=== PATIENT | male | born 1975 | race Caucasian/White ===

== ENCOUNTER 2017-09-01 12:14 | Emergency (ER) | payer SELFPAY ==
[~2017-09-01] VITALS: Ht 182.9 cm; Wt 65.2 kg
[2017-09-01 12:16] VITALS: BP 123/84
[2017-09-01] MEDS ORDERED: LIDOCAINE 1%, 20ML SQ ONE (13:00)
[2017-09-01] MEDS ORDERED: LIDOCAINE 1%, 20ML ONE (13:03)
[2017-09-01 13:48] LABS: HEMATOCRIT 44.7 % (39.2-51.8); HEMOGLOBIN 15.2 g/dL (13.7-18.0); WHITE BLOOD COUNT 12.5 x10^3/uL (3.4-10)
[2017-09-01 14:04] LABS: BLOOD UREA NITROGEN 12 mg/dL (7-18)
== END 2017-09-01 14:47 | disposition home or self-care (01) ==
LOC: ED 14:30
DX: L03.113 Cellulitis of right upper limb (principal); L02.413 Cutaneous abscess of right upper limb
CPT/HCPCS: 10060; 36415; 80048; 82040; 85025

== ENCOUNTER 2017-09-03 10:53 | Emergency (ER) | payer SELFPAY ==
[~2017-09-03] VITALS: Ht 182.9 cm; Wt 64.0 kg
[2017-09-03 10:55] VITALS: BP 116/74
== END 2017-09-03 12:13 | disposition home or self-care (01) ==
LOC: ED 11:34
DX: Z48.01 Encounter for change or removal of surgical wound dressing (principal)
CPT/HCPCS: 99283

== ENCOUNTER 2017-09-05 10:14 | Emergency (ER) | payer SELFPAY ==
[~2017-09-05] VITALS: Ht 185.4 cm; Wt 65.4 kg
[2017-09-05 10:16] VITALS: BP 121/78
[2017-09-05] MEDS ORDERED: LIDOCAINE 1%, 20ML SQ ONE (11:00)
== END 2017-09-05 12:45 | disposition home or self-care (01) ==
LOC: ED 11:18
DX: L03.113 Cellulitis of right upper limb (principal); T36.8X5A Adverse effect of other systemic antibiotics, initial encounter; Y92.89 Other specified places as the place of occurrence of the external cause
CPT/HCPCS: 10060; 99284

== ENCOUNTER 2017-09-07 10:03 | Emergency (ER) | payer OTHER ==
[~2017-09-07] VITALS: Ht 182.9 cm; Wt 64.4 kg
[2017-09-07 10:07] VITALS: BP 120/75
== END 2017-09-07 11:14 | disposition home or self-care (01) ==
LOC: ED 10:43
DX: L02.413 Cutaneous abscess of right upper limb (principal)
CPT/HCPCS: 99283

== ENCOUNTER 2017-09-09 09:30 | Emergency (ER) | payer SELFPAY ==
[~2017-09-09] VITALS: Ht 182.9 cm; Wt 65.4 kg
[2017-09-09 09:31] VITALS: BP 121/84
== END 2017-09-09 10:22 | disposition home or self-care (01) ==
LOC: ED 09:45
DX: Z48.01 Encounter for change or removal of surgical wound dressing (principal)
CPT/HCPCS: 99283

== ENCOUNTER 2017-10-17 14:42 | Emergency (ER) | payer MEDICAID, OTHER ==
[~2017-10-17] VITALS: Ht 182.9 cm; Wt 64.3 kg
[2017-10-17] MEDS ORDERED: SODIUM CHLORIDE 0.9% 1,000 ML IV ONE (15:13)
[2017-10-17] MEDS ORDERED: SODIUM CHLORIDE 0.9% 1,000ML IVBOLUS ONE (15:30)
[2017-10-17 15:42] LABS: HEMATOCRIT 46.7 % (39.2-51.8); HEMOGLOBIN 15.9 g/dL (13.7-18.0); WHITE BLOOD COUNT 7.9 x10^3/uL (3.4-10)
[2017-10-17 16:03] LABS: ASPARTATE AMINO TRANSFERASE 18 U/L (15-37); BLOOD UREA NITROGEN 16 mg/dL (7-18)
[2017-10-17 16:04] LABS: IS PT STATUS REG ER OR PRE ER? YES
[2017-10-17] MEDS ORDERED: CITA20TA5 PO (16:06)
[2017-10-17] MEDS ORDERED: TRAZ50TA18 PO (16:06)
[2017-10-17 17:14] VITALS: BP 128/72
== END 2017-10-17 17:26 | disposition home or self-care (01) ==
LOC: ED 17:00
DX: R10.30 Lower abdominal pain, unspecified (principal); F17.210 Nicotine dependence, cigarettes, uncomplicated; G89.29 Other chronic pain
CPT/HCPCS: 36415; 71010; 80053; 81001; 83690; 84484; 85025; 93005; 96360; 96361; 99285; J7030